=== PATIENT | female | born 1995 ===

== ENCOUNTER 2016-07-11 20:23 | Emergency (ER) ==
--- NOTE | 2016-07-11 22:12 | EDDOCDS ---
Physician Documentation [facility] Name: Claire Hemphill Age: 20 yrs Sex: Female : 1995 Arrival Date: 07/11/2016 Time: 20:23 Bed TR8 Private MD: ADALGISA Nicholas Disposition: 07/11/16 21:34 Discharged to Home/Self Care. Impression: Localized swelling, mass and lump of skin and subcutaneous tissue - left Groin. - Condition is Stable. - Discharge Instructions: Lymphadenopathy. - Medication Reconciliation form. - Follow up: ADALGISA Nicholas; When: Tomorrow; Reason: Wound/Symptom Recheck, Recheck today's complaints, Worsening of conditions, Continuance of care. - Problem is new. - Symptoms are unchanged. Historical: - Allergies: no known allergies; - Home Meds: 1. none - PMHx: none; - PSHx: none; - Social history: Smoking status: Patient states was never smoker of tobacco. No barriers to communication noted, The patient speaks fluent Eritrean, Speaks appropriately for age. - Family history: Not pertinent. - : The pt / caregiver states he / she is not on anticoagulants. Home medication list is obtained from the patient. - Exposure Risk Screening:: None identified. 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 (177.80 cm); Pain 8/10; 22:08 BP 110 / 60; Pulse 87; Resp 18; Temp 98; Pulse Ox 98% ; Pain 2/10; ms18 20:25 Body Mass Index 23.67 (74.84 kg, 177.80 cm) lr2 Signatures: Arnulfo Zhang RN RN mlb1 Bernardo Coy PA-C PA-C cc10 Briseyda Juárez RN RN ms18 MTDD
--- NOTE | 2016-07-11 22:13 | EDDOCDS ---
Nurse's Notes [facility] Name: Claire Hemphill Age: 20 yrs Sex: Female : 1995 Arrival Date: 07/11/2016 Time: 20:23 Bed TR8 Private MD: ADALGISA Nicholas Diagnosis: Localized swelling, mass and lump of skin and subcutaneous tissue-left Groin Presentation: 07/11 20:28 Presenting complaint: Patient states: Painful "Lump" to left groin began this am. Adult mlb1 Sepsis Screening: The patient does not have new or worsening altered mentation. Patient's respiratory rate is less than 22. Systolic blood pressure is greater than 100. Patient has a qSOFA score of 0- Negative Sepsis Screen. Suicide/Homicide risk assessment- the patient denies having any suicidal and/or homicidal ideations and does not present with any other emotional, behavioral or mental health complaints. 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 Transition of care: patient was not received from another setting of care. 20:28 Acuity: BRANDEN Level 4 mlb1 20:28 Method Of Arrival: Walkin/Carried/Asstd mlb1 Triage Assessment: 20:29 General: Appears in no apparent distress, Behavior is appropriate for age, cooperative. mlb1 Pain: Location: left femoral area Pain currently is 9 out of 10 on a pain scale. Pt Declines HIV testing. 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 none - PMHx: none; - PSHx: none; - Social history: Smoking status: Patient states was never smoker of tobacco. No barriers to communication noted, The patient speaks fluent Guamanian, Speaks appropriately for age. - Family history: Not pertinent. - : The pt / caregiver states he / she is not on anticoagulants. Home medication list is obtained from the patient. - Exposure Risk Screening:: None identified. Screenin:08 Screening information is obtained from the patient. Fall risk: No risks identified. ms18 Assistance ADL's: requires no assistance with activities of daily living. Abuse/DV Screen: The patient / caregiver reports he/she is: not in a situation that causes fear, pain or injury. Nutritional screening: No deficits noted. Advance Directives: There is no living will. home support is adequate. Assessment: 22:08 General: Appears in no apparent distress, comfortable, Behavior is appropriate for age, ms18 cooperative, pleasant. Pain: Location: left femoral area Pain currently is 2 out of 10 on a pain scale. Neurological: Level of Consciousness is awake, alert, obeys commands, Oriented to person, place, time. Respiratory: Airway is patent Respiratory effort is even, unlabored, Respiratory pattern is regular, symmetrical. Derm: Skin is pink, warm & dry. small red bump noted to pt's L groin. Vital Signs: 20:25 BP 108 / 59; Pulse 88; Resp 16; Temp 98.2(O); Pulse Ox 100% on R/A; Weight 74.84 kg lr2 (R); Height 70 in. (177.80 cm); Pain 8/10; 22:08 BP 110 / 60; Pulse 87; Resp 18; Temp 98; Pulse Ox 98% ; Pain 2/10; ms18 20:25 Body Mass Index 23.67 (74.84 kg, 177.80 cm) lr2 Vitals: 20:25 Log In Time: July 11, 2016 at 20:23. lr2 ED Course: 20:24 Patient visited by Radha Arrieta. lr2 20:24 Patient moved to Waiting lr2 20:26 ADALGISA Nicholas is Private Physician. lr2 20:26 Patient moved to Pre RCE lr2 20:28 Patient visited by Arnulfo Zhang, RN. mlb1 20:29 Triage Initiated mlb1 20:30 Patient visited by Arnulfo Zhang, RN. mlb1 21:22 Patient moved to Triage 3 ms18 21:26 Bernardo Coy PA-C is PHCP. cc10 21:26 Fidel Butler MD is Attending Physician. cc10 21:26 Patient visited by Bernardo Coy PA-C. cc10 21:26 Patient visited by Bernardo Coy PA-C. cc10 21:34 ADALGISA Nicholas is Referral Physician. cc10 21:48 Patient moved to TR8 ms18 22:08 The patient / caregiver is instructed regarding the plan of care and ED course. ms18 Accompanied by Significant Other, Patient has correct armband on for positive identification. Property :Personal belongings accompany Pt. 22:08 No IV's were initiated during this patient's visit. No procedures done that require ms18 assistance. Order Results: There are currently no results for this order. Outcome: 21:34 Discharge ordered by Provider. cc10 22:08 Discharge Assessment: Patient awake, alert and oriented x 3. No cognitive and/or ms18 functional deficits noted. Patient verbalized understanding of disposition instructions. patient administered narcotics - no. The following High Risk Discharge criteria are identified: None. Discharged to home ambulatory. Condition: good. Discharge instructions given to patient, Instructed on discharge instructions, follow up and referral plans. Demonstrated understanding of instructions, Pt was receptive of discharge instructions/ teaching. No special radiology studies were completed. 22:12 Patient left the ED. ms18 Signatures: Arnulfo Zhang RN RN mlb1 Bernardo Coy PA-C PA-C cc10 Briseyda Juárez RN RN ms18 Radha Arrieta lr2 MTDD
--- NOTE | 2016-07-13 23:13 | EDDOCDS ---
Nurse's Notes [facility] Name: Claire Hemphill Age: 20 yrs Sex: Female : 1995 Arrival Date: 07/11/2016 Time: 20:23 Bed TR8 Private MD: ADALGISA Nicholas Diagnosis: Localized swelling, mass and lump of skin and subcutaneous tissue-left Groin Presentation: 07/11 20:28 Presenting complaint: Patient states: Painful "Lump" to left groin began this am. Adult mlb1 Sepsis Screening: The patient does not have new or worsening altered mentation. Patient's respiratory rate is less than 22. Systolic blood pressure is greater than 100. Patient has a qSOFA score of 0- Negative Sepsis Screen. Suicide/Homicide risk assessment- the patient denies having any suicidal and/or homicidal ideations and does not present with any other emotional, behavioral or mental health complaints. 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 Transition of care: patient was not received from another setting of care. 20:28 Acuity: BRANDEN Level 4 mlb1 20:28 Method Of Arrival: Walkin/Carried/Asstd mlb1 Triage Assessment: 20:29 General: Appears in no apparent distress, Behavior is appropriate for age, cooperative. mlb1 Pain: Location: left femoral area Pain currently is 9 out of 10 on a pain scale. Pt Declines HIV testing. 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 none - PMHx: none; - PSHx: none; - Social history: Smoking status: Patient states was never smoker of tobacco. No barriers to communication noted, The patient speaks fluent Northern Irish, Speaks appropriately for age. - Family history: Not pertinent. - : The pt / caregiver states he / she is not on anticoagulants. Home medication list is obtained from the patient. - Exposure Risk Screening:: None identified. Screenin:08 Screening information is obtained from the patient. Fall risk: No risks identified. ms18 Assistance ADL's: requires no assistance with activities of daily living. Abuse/DV Screen: The patient / caregiver reports he/she is: not in a situation that causes fear, pain or injury. Nutritional screening: No deficits noted. Advance Directives: There is no living will. home support is adequate. Assessment: 22:08 General: Appears in no apparent distress, comfortable, Behavior is appropriate for age, ms18 cooperative, pleasant. Pain: Location: left femoral area Pain currently is 2 out of 10 on a pain scale. Neurological: Level of Consciousness is awake, alert, obeys commands, Oriented to person, place, time. Respiratory: Airway is patent Respiratory effort is even, unlabored, Respiratory pattern is regular, symmetrical. Derm: Skin is pink, warm & dry. small red bump noted to pt's L groin. Vital Signs: 20:25 BP 108 / 59; Pulse 88; Resp 16; Temp 98.2(O); Pulse Ox 100% on R/A; Weight 74.84 kg lr2 (R); Height 70 in. (177.80 cm); Pain 8/10; 22:08 BP 110 / 60; Pulse 87; Resp 18; Temp 98; Pulse Ox 98% ; Pain 2/10; ms18 20:25 Body Mass Index 23.67 (74.84 kg, 177.80 cm) lr2 Vitals: 20:25 Log In Time: July 11, 2016 at 20:23. lr2 ED Course: 20:24 Patient visited by Radha Arrieta. lr2 20:24 Patient moved to Waiting lr2 20:26 ADALGISA Nicholas is Private Physician. lr2 20:26 Patient moved to Pre RCE lr2 20:28 Patient visited by Arnulfo Zhang, RN. mlb1 20:29 Triage Initiated mlb1 20:30 Patient visited by Arnulfo Zhang, RN. mlb1 21:22 Patient moved to Triage 3 ms18 21:26 Bernardo Coy PA-C is PHCP. cc10 21:26 Fidel Butler MD is Attending Physician. cc10 21:26 Patient visited by Bernardo Coy PA-C. cc10 21:26 Patient visited by Bernardo Coy PA-C. cc10 21:34 ADALGISA Nicholas is Referral Physician. cc10 21:48 Patient moved to TR8 ms18 22:08 The patient / caregiver is instructed regarding the plan of care and ED course. ms18 Accompanied by Significant Other, Patient has correct armband on for positive identification. Property :Personal belongings accompany Pt. 22:08 No IV's were initiated during this patient's visit. No procedures done that require ms18 assistance. 07/12 13:56 T-Sheet-- Draft Copy was scanned into [employer] and attached to record. Order Results: There are currently no results for this order. Outcome: 07/11 21:34 Discharge ordered by Provider. cc10 22:08 Discharge Assessment: Patient awake, alert and oriented x 3. No cognitive and/or ms18 functional deficits noted. Patient verbalized understanding of disposition instructions. patient administered narcotics - no. The following High Risk Discharge criteria are identified: None. Discharged to home ambulatory. Condition: good. Discharge instructions given to patient, Instructed on discharge instructions, follow up and referral plans. Demonstrated understanding of instructions, Pt was receptive of discharge instructions/ teaching. No special radiology studies were completed. 22:12 Patient left the ED. ms18 Signatures: Reyna Mcdowell, Reg Reg gb Arnulfo Zhang, RN RN mlb1 Bernardo Coy PA-C PAYoseph cc10 Briseyda Juárez RN RN ms18 Radha Arrieta lr2 Chart Complete [facility]
--- NOTE | 2016-07-13 23:13 | EDDOCDS ---
Physician Documentation [facility] Name: Claire Hemphill Age: 20 yrs Sex: Female : 1995 Arrival Date: 07/11/2016 Time: 20:23 Bed TR8 Private MD: ADALGISA Nicholas Disposition: 07/11/16 21:34 Discharged to Home/Self Care. Impression: Localized swelling, mass and lump of skin and subcutaneous tissue - left Groin. - Condition is Stable. - Discharge Instructions: Lymphadenopathy. - Medication Reconciliation form. - Follow up: ADALGISA Nicholas; When: Tomorrow; Reason: Wound/Symptom Recheck, Recheck today's complaints, Worsening of conditions, Continuance of care. - Problem is new. - Symptoms are unchanged. Historical: - Allergies: no known allergies; - Home Meds: 1. none - PMHx: none; - PSHx: none; - Social history: Smoking status: Patient states was never smoker of tobacco. No barriers to communication noted, The patient speaks fluent Stateless, Speaks appropriately for age. - Family history: Not pertinent. - : The pt / caregiver states he / she is not on anticoagulants. Home medication list is obtained from the patient. - Exposure Risk Screening:: None identified. 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 (177.80 cm); Pain 8/10; 22:08 BP 110 / 60; Pulse 87; Resp 18; Temp 98; Pulse Ox 98% ; Pain 2/10; ms18 20:25 Body Mass Index 23.67 (74.84 kg, 177.80 cm) lr2 MDM: 07/12 13:56 T-Sheet-- Draft Copy was scanned into [employer] and attached to record. gb Signatures: Reyna Mcdowell, Reg Reg gb Arnulfo Zhang RN RN mlb1 Bernardo Coy, PA-C PA-C cc10 Briseyda JuárezRN RN ms18 The chart was reviewed and I authenticate all verbal orders and agree with the evaluation and treatment provided.Attachments: 13:56 T-Sheet-- Draft Copy gb Chart Complete MTDD
--- NOTE | 2016-07-13 23:13 | EDDOCDS ---
Physician Documentation [facility] Name: Claire Hemphill Age: 20 yrs Sex: Female : 1995 Arrival Date: 07/11/2016 Time: 20:23 Bed TR8 Private MD: ADALGISA Nicholas Disposition: 07/11/16 21:34 Discharged to Home/Self Care. Impression: Localized swelling, mass and lump of skin and subcutaneous tissue - left Groin. - Condition is Stable. - Discharge Instructions: Lymphadenopathy. - Medication Reconciliation form. - Follow up: ADALGISA Nicholas; When: Tomorrow; Reason: Wound/Symptom Recheck, Recheck today's complaints, Worsening of conditions, Continuance of care. - Problem is new. - Symptoms are unchanged. Historical: - Allergies: no known allergies; - Home Meds: 1. none - PMHx: none; - PSHx: none; - Social history: Smoking status: Patient states was never smoker of tobacco. No barriers to communication noted, The patient speaks fluent Sri Lankan, Speaks appropriately for age. - Family history: Not pertinent. - : The pt / caregiver states he / she is not on anticoagulants. Home medication list is obtained from the patient. - Exposure Risk Screening:: None identified. 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 (177.80 cm); Pain 8/10; 22:08 BP 110 / 60; Pulse 87; Resp 18; Temp 98; Pulse Ox 98% ; Pain 2/10; ms18 20:25 Body Mass Index 23.67 (74.84 kg, 177.80 cm) lr2 MDM: 07/12 13:56 T-Sheet-- Draft Copy was scanned into [employer] and attached to record. gb Signatures: Reyna Mcdowell, Reg Reg gb Arnulfo Zhang RN RN mlb1 Bernardo Coy, PA-C PA-C cc10 Briseyda JuárezRN RN ms18 The chart was reviewed and I authenticate all verbal orders and agree with the evaluation and treatment provided.Attachments: 13:56 T-Sheet-- Draft Copy gb Chart Complete MTDD
== END 2016-07-11 22:12 | disposition home or self-care (01) ==
LOC: M ED 20:23
DX: R59.0 Localized enlarged lymph nodes (principal)